=== PATIENT | female | born 1965 | race Caucasian/White ===

== ENCOUNTER → 2021-12-22 | Outpatient (CLI) | payer BC ==
[2021-12-22 09:18] LABS: HEMOGLOBIN 14.3 gm/dl (12.3-15.3); RED BLOOD COUNT 4.59 M/UL (4.00-5.10)
== END ==
LOC: LAB 08:28
PROVIDERS: Family Medicine
DX: E03.9 Hypothyroidism, unspecified (principal); Z00.00 Encounter for general adult medical examination without abnormal findings
CPT/HCPCS: 36415; 80053; 80061; 84443; 85027

== ENCOUNTER → 2022-01-13 | Outpatient (CLI) | payer BC | LOC: MAMO 09:25 | DX: Z12.31 Encounter for screening mammogram for malignant neoplasm of breast (principal) | CPT/HCPCS: 77063; 77067 ==